=== PATIENT | female | born 1970 | race Caucasian/White ===

== ENCOUNTER 2018-11-18 00:32 | Emergency (ER) | payer BC, MEDICAID, OTHER ==
[~2018-11-18] VITALS: Ht 165.1 cm; Wt 63.5 kg
--- NOTE | 2018-11-18 00:41 | NUR ---
Pt ambulated to ER with c/o left flank pain radiating to left lower quadrant abd x 1 hr prior to arrival. No nausea/vomiting. Denies chest pain/sob. Will ctm. Pt appears uncomfortable, in a lot of pain. Pending orders. Son at bedside.
[2018-11-18] MEDS ORDERED: KETOROLAC TROMETHAMINE 30 MG INJ IVP ONE (00:45)
[2018-11-18] MEDS ORDERED: IV NORMAL SALINE 1000 ML BAG IV ONE (00:45)
[2018-11-18] MEDS ORDERED: MORPHINE SULFATE 2 MG/1 ML DISP.SYRIN IV ONE (00:45)
[2018-11-18] MEDS ORDERED: ONDANSETRON 4 MG/2 ML VIAL IV ONE (00:45)
[2018-11-18 00:57] LABS: BASOPHILS # (AUTO) 0.1 K/uL (0.0-8.0); BASOPHILS % (AUTO) 0.6 % (0.0-2.0); EOSINOPHILS # (AUTO) 0.3 K/uL (0.0-0.7); EOSINOPHILS % (AUTO) 2.3 % (0.0-7.0); HEMATOCRIT 38.5 % (31.2-41.9); HEMOGLOBIN 13.3 g/dL (10.9-14.3); LYMPHOCYTES # (AUTO) 4.8 K/uL (20.0-40.0); LYMPHOCYTES % (AUTO) 43.3 % (20.5-51.5); MEAN CORPUSCULAR HGB CONC 35 g/dL (32.3-35.6); MEAN CORPUSCULAR VOLUME 83.9 fL (75.5-95.3); MONOCYTES # (AUTO) 0.8 K/uL (2.0-10.0); MONOCYTES % (AUTO) 7.5 % (0.0-11.0); NEUTROPHILS # (AUTO) 5.1 K/uL (1.8-8.9); NEUTROPHILS % (AUTO) 46.3 % (38.5-71.5); PLATELET COUNT (AUTO) 342 K/uL (179-408); RED BLOOD CELL COUNT(AUTO) 4.59 MIL/uL (3.63-4.92)
[2018-11-18] MEDS ORDERED: KETOROLAC TROMETHAMINE 30 MG INJ ONE (01:00)
[2018-11-18] MEDS ORDERED: ONDANSETRON 4 MG/2 ML VIAL ONE (01:00)
[2018-11-18] MEDS ORDERED: MORPHINE SULFATE 2 MG/1 ML DISP.SYRIN ONE (01:00)
[2018-11-18 01:04] LABS: CARBON DIOXIDE 27 mmol/L (21-32); CHLORIDE 103 mmol/L (98-107); CREATININE 0.8 mg/dL (0.6-1.3); GLUCOSE 106 mg/dL (74-106); POTASSIUM 3.8 mmol/L (3.5-5.1); UREA NITROGEN, BLOOD 16 mg/dL (7-18)
[2018-11-18 01:10] LABS: ALANINE AMINOTRANSFERASE 33 U/L (14-59); ALKALINE PHOSPHATASE 46 U/L (50-136); ASPARTATE AMINOTRANSFERASE 13 U/L (15-37); BILIRUBIN,DIRECT 0.1 mg/dL (0.0-0.2); BILIRUBIN,TOTAL 0.2 mg/dL (0.2-1.0); TOTAL PROTEIN, SERUM 7.8 g/dL (6.4-8.2)
[2018-11-18] MEDS ORDERED: MORPHINE SULFATE 4 MG/1 ML DISP.SYRIN ONE (01:12)
[2018-11-18] MEDS ORDERED: MORPHINE SULFATE 4 MG/1 ML DISP.SYRIN IV ONE (01:15)
--- NOTE | 2018-11-18 01:21 | NUR ---
Pt states pain went down from 06/24 to 09/24.
--- NOTE | 2018-11-18 01:48 | NUR ---
Ultrasound at bedside.
--- NOTE | 2018-11-18 02:05 | NUR ---
Pt appears comfortable, resting in bed. No acute distress noted.
[2018-11-18 02:12] LABS: *BILIRUBIN,URIN NEGATIVE (NEGATIVE); *BLOOD, URINE Trace-intact (NEGATIVE); *CLARITY,URINE CLEAR (CLEAR); *COLOR,URINE YELLOW (YELLOW); *KETONES,URINE TRACE (NEGATIVE); LEUKOCYTE ESTERASE ,URINE NEGATIVE (NEGATIVE); NITRITE, URINE NEGATIVE (NEGATIVE); PH,URINE 7.5 (5.0-8.0); UGLUCOSE NEGATIVE (NEGATIVE)
[2018-11-18 02:13] LABS: BACTERIA,URINE FEW /HPF (NONE SEEN); SQUAMOUS EPITHELIAL CELL,UR NONE SEEN /HPF (NONE SEEN); WBC,URINE 0-3 /HPF (0-3)
--- NOTE | 2018-11-18 02:33 | NUR ---
Pt appears comfortable, no pain. Bilateral BP done per MD - right arm 97/68 + left arm 98/61
--- NOTE | 2018-11-18 02:43 | NUR ---
IV removed. Catheter intact and site benign. Pressure and 4x4 gauze applied to site. No bleeding noted.
--- NOTE | 2018-11-18 02:45 | NUR ---
Patient discharged to home in stable conditon. Written and verbal after care instructions given. Patient verbalizes understanding of instructions. Pt ambulated out of ER in steady gait w son who will drive home. All belongings w pt. VSS. NAD noted.
[2018-11-18 02:55] VITALS: BP 97/68
== END 2018-11-18 02:56 | disposition home or self-care (01) ==
LOC: ER 00:34
DX: R10.9 Unspecified abdominal pain (principal); R11.0 Nausea
CPT/HCPCS: 36415; 76770; 80048; 80076; 81001; 84702; 85025; 96374; 96375; 99284; J1885; J2270 ×2; J2405; A4663; J7030

== ENCOUNTER 2025-05-05 12:16 | Emergency (ER) | payer MEDICAID, OTHER ==
[~2025-05-05] VITALS: Ht 165.1 cm; Wt 63.5 kg
[2025-05-05] MEDS ORDERED: LISI20TA30 PO (12:26)
[2025-05-05 13:30] LABS: PLATELET COUNT (AUTO) 335 K/uL (179-408); RED BLOOD CELL COUNT(AUTO) 4.92 MIL/uL (3.63-4.92); RED CELL DISTRIBUTION WIDTH 14.2 % (12.3-17.7); WHITE BLOOD COUNT (AUTO) 8.4 K/uL (3.8-11.8)
[2025-05-05 13:41] LABS: CREATININE 0.6 mg/dL (0.6-1.3); SODIUM SERUM 142 mmol/L (136-145); UREA NITROGEN, BLOOD 13 mg/dL (7-18)
[2025-05-05 13:47] LABS: ASPARTATE AMINOTRANSFERASE 10 U/L (15-37); TOTAL PROTEIN, SERUM 7.8 g/dL (6.4-8.2)
[2025-05-05] MEDS ORDERED: AMLO10TA4 PO (14:01)
[2025-05-05] MEDS ORDERED: IOHEXOL 350 100 ML INFUS..BTL ONE (14:18)
[2025-05-05] MEDS ORDERED: SWABABLE VALVE TRANSFER SET EA MC ONE (14:18)
[2025-05-05] MEDS ORDERED: IV NORMAL SALINE 250 ML IV ONE (14:19)
[2025-05-05 14:38] LABS: *BILIRUBIN,URIN NEGATIVE (NEGATIVE); *BLOOD, URINE NEGATIVE (NEGATIVE); *CLARITY,URINE CLEAR (CLEAR); *COLOR,URINE YELLOW (YELLOW); *KETONES,URINE NEGATIVE (NEGATIVE); *PROTEIN,URINE NEGATIVE (NEGATIVE); *UROBILINOGEN,URINE 0.2 E.U./dl (NORMAL); LEUKOCYTE ESTERASE ,URINE TRACE (NEGATIVE); NITRITE, URINE NEGATIVE (NEGATIVE); UGLUCOSE NEGATIVE (NEGATIVE)
[2025-05-05 14:43] VITALS: BP 135/83
[2025-05-05 14:53] LABS: SQUAMOUS EPITHELIAL CELL,UR FEW /HPF (NONE SEEN)
[2025-05-05 17:28] VITALS: BP 121/77; O2SAT 97
== END 2025-05-05 17:29 | disposition home or self-care (01) ==
LOC: ER 12:16
DX: I10 Essential (primary) hypertension (principal); R06.02 Shortness of breath; R07.9 Chest pain, unspecified; R10.32 Left lower quadrant pain; R51.9 Headache, unspecified; Z79.899 Other long term (current) drug therapy; Z87.442 Personal history of urinary calculi
CPT/HCPCS: 99285; 70450; 71045; 80076; 80048; 81001; 82550; 82962; 83880; 85025; 85379; 85730; 84484; 36415; 71275; 74176; 93005; Q9967; A4606; A4663